=== PATIENT | female | born 1970 | race Caucasian/White ===

== ENCOUNTER 2018-09-12 09:56 | Emergency (ER) | payer MEDICARE, BC ==
[~2018-09-12] VITALS: Ht 165.1 cm; Wt 109.3 kg
--- OUTSIDE RECORDS SUMMARY | 2018-09-12 10:20 | XMS REPORT ---
Author Author NEELAM JAMES [facility] YONATHAN GUILLERMO MAIN Address [address] [place] [address] Care Team Providers Care Cigarette Paper Tester Name Role Phone JACOB, NEELAM Unavailable PROBLEMS Type Condition ICD9-CM Code CQU37-XG Code Onset Dates Condition Status SNOMED Code Problem Lung nodules R91.8 Aug, 0 745004718 Problem Hemorrhoids K64.9 Jun, 0 04588662 Problem Primary osteoarthritis of right knee M17.11 Jan, 0 513848580 Problem Vitamin B12 deficiency E53.8 July, 0 396099402 Problem Mild persistent asthma with acute exacerbation J45.31 Dec, 0 [id number] Problem Fibromyalgia M79.7 Active 729910059 Problem Hypothyroidism (acquired) E03.9 Active 272706860 Problem Anal fissure K60.2 Jun, 0 99079014 Problem Gastroesophageal reflux disease K21.9 Apr, 0 466131912 Problem Family history of colon cancer Z80.0 Nov, 0 501687599 Problem Esophageal stricture K22.2 Jun, 0 54776640 Problem Therapeutic opioid induced constipation K59.03 Mar, 0 [id number] Problem Temporomandibular joint pain 524.62 Feb, 0 37601433 Problem Mild persistent asthma with acute exacerbation 493.92 Dec, 0 915162434 Problem Temporomandibular joint pain M26.629 Feb, 0 34209238 Problem Primary osteoarthritis of right knee 715.16 Jan, 0 865110582 Problem Severe obesity (BMI 35.0-39.9) with comorbidity 278.01 Aug, 0 374391574 Problem Migraine G43.909 Feb, 0 56642170 Problem Hypoxia R09.02 Sep, 0 141981167 Problem Community acquired pneumonia of right middle lobe of lung 481 Aug, 0 891295373 Problem Dyspnea on exertion R06.09 Oct, 0 27844257 Problem Therapeutic opioid induced constipation 564.09 Mar, 0 853048759357699 Problem Gastroesophageal reflux disease 530.81 Apr, 0 601745712 Problem Lung nodules 793.19 Aug, 0 684750659 Problem Esophageal stricture 530.3 Jun, 0 99807702 Problem Vitamin B12 deficiency 266.2 July, 0 006710537 Problem Hemorrhoids 455.6 Jun, 0 36204751 Problem Hypoxia 799.02 Sep, 0 609597219 Problem Dyspnea on exertion 786.09 Oct, 0 06578657 Problem Rotator cuff tendinitis M75.80 Oct, 0 064015899 Problem Rotator cuff tendinitis 726.10 Oct, 0 853307510 Problem Community acquired pneumonia of right middle lobe of lung J18.1 Aug, 0 654386876 Problem Severe obesity (BMI 35.0-39.9) with comorbidity E66.01 Aug, 0 491964112 Problem Insomnia 780.52 Jun, 0 357862708 Problem Anxiety 300.00 Jun, 0 26410445 Problem Anal fissure 565.0 Jun, 0 93470578 Problem Migraine 346.90 Feb, 0 98896404 Problem Hypothyroidism E03.9 Apr, 0 02331578 Problem Insomnia G47.00 Jun, 0 572374904 Problem Bilateral carpal tunnel syndrome G56.03 Active 61674270 Problem Anxiety F41.9 Active 72267320 Problem Memory impairment R41.3 Active 740724503 Problem Moderate episode of recurrent major depressive disorder F33.1 Active 322884579 Problem Primary insomnia F51.01 Active 9676588 Problem Hypothyroidism, unspecified E03.9 Active 17860844 Problem Fibromyalgia 729.1 Apr, 0 371778979 Problem Breast cancer C50.919 Active 528498760 Problem Family history of colon cancer V16.0 Nov, 0 492794098 Problem Hypothyroidism 244.9 Apr, 0 69396548 Problem Bipolar II disorder F31.81 Active 70531390 Problem Asthma J45.909 Active 390228148 Problem Morbid obesity E66.01 Active 979074113 Problem Insomnia, unspecified G47.00 Active 988557382 ALLERGIES Substance Reaction Event Type Date Status Topamax Unknown Drug Allergy May, Active Klonopin Unknown Drug Allergy May, Active Ibuprofen Unknown Drug Allergy May, Active Tylenol with Codeine #3 Unknown Drug Allergy May, Active ENCOUNTERS Encounter Location Date Diagnosis [facility] [address] [place] [address] Oct, [facility] [address] [place] [address] Aug, [facility] [address] [facility] [id number] [place] [address] July, [facility] [address] [place] [address] July, Dental examination Z01.20 ; Caries K02.9 ; Gingivitis K05.10 and Oral health maintenance status requiring routine preventive dental care K08.[address] [address] July, Breast tenderness N64.[address] [address] July, Morbid obesity E66.01 and Fibromyalgia M79.7 [facility] [address] [place] [address] July, [address] [address] July, Bipolar II disorder F31.81 ; Anxiety F41.9 and BMI 40.0-44.9, adult Z68.[address] [address] July, [address] [address] July, Breast tenderness N64.[address] [address] July, Breast cancer C50.[address] [address] Jun, [address] [address] Jun, Hypothyroidism (acquired) E03.9 and Prediabetes R73.03 [facility] [place] [address] [place] [address] Jun, [facility] [place] [address] [place] [address] Jun, Fibromyalgia M79.[address] [address] Jun, [address] [address] Jun, Hypothyroidism, unspecified E03.9 ; Insomnia, unspecified G47.00 ; Moderate episode of recurrent major depressive disorder F33.1 and Fibromyalgia M79.[address] [address] Jun, [facility] [address] [place] [address] Jun, Morbid obesity E66.01 [facility] [address] [place] [address] Jun, Morbid obesity E66.[address] [address] Jun, Fibromyalgia M79.7 [facility] [address] [facility] [id number] [place] [address] Jun, [facility] [place] [address] [place] [address] Jun, [address] [address] May, [facility] [address] [place] [address] May, Asthma exacerbation J45.901 and Sinus pain J34.[address] [address] May, [address] [address] May, [facility] [place] [address] [place] [address] May, [address] [place] [address] 08 May, 2018 Hypothyroidism (acquired) E03.[address] [address] 07 May, 2018 Fibromyalgia M79.7 ; Morbid obesity E66.01 ; Anxiety F41.9 ; Moderate episode of recurrent major depressive disorder F33.1 ; Memory impairment R41.3 ; Hypothyroidism (acquired) E03.9 ; Elevated glucose R73.09 ; History of migraine Z86.69 ; Prediabetes R73.03 and Primary insomnia F51.[address] [address] 05 May, [address] [address] 26 Apr, [address] [address] 16 Apr, 2018 Moderate episode of recurrent major depressive disorder F33.1 [facility] [address] [place] [address] Apr, Bipolar II disorder F31.81 [facility] [address] [place] [address] Apr, Bipolar II disorder F31.81 [facility] [id number] [place] [address] Apr, Anxiety F41.9 ; Bipolar II disorder F31.81 and BMI 40.0-44.9, adult Z68.[address] [address] 04 Apr, 2018 Fibromyalgia M79.7 [facility] [place] [address] [place] [address] Mar, Moderate episode of recurrent major depressive disorder F33.1 [facility] [address] [place] [address] Feb, [facility] [address] [place] [address] Feb, [facility] [address] [place] [id number] [place] [address] Feb, [facility] [address] [place] [address] [place] [address] Jan, [facility] [address] [place] [address] [place] [address] Jan, [facility] [address] [place] [address] [place] [address] Jan, Moderate episode of recurrent major depressive disorder F33.1 ; Memory impairment R41.3 ; Fibromyalgia M79.7 ; Bilateral carpal tunnel syndrome G56.03 ; Hypothyroidism (acquired) E03.9 ; Prediabetes R73.03 ; Screening for breast cancer Z12.31 and History of seizure Z87.898 [facility] [address] [place] [address] [place] [address] Dec, Mood disorder F39 ; Moderate episode of recurrent major depressive disorder F33.1 ; Anxiety F41.9 and BMI 40.0-44.9, adult Z68.41 [facility] [place] [address] [place] [address] Sep, Mood disorder F39 ; Moderate episode of recurrent major depressive disorder F33.1 ; Anxiety F41.9 and BMI 40.0-44.9, adult Z68.41 [facility] [address] [facility] [id number] [place] [address] Aug, [facility] [address] [place] [address] July, Mood disorder F39 ; Moderate episode of recurrent major depressive disorder F33.1 ; Anxiety F41.9 and BMI 40.0-44.9, adult Z68.41 [facility] [place] [address] [place] [address] May, Mood disorder F39 ; Moderate episode of recurrent major depressive disorder F33.1 ; Anxiety F41.9 and BMI 40.0-44.9, adult Z68.41 [facility] [place] [address] [place] [address] May, Mood disorder F39 [facility] [address] [id number] [place] [address] May, Mood disorder F39 ; Moderate episode of recurrent major depressive disorder F33.1 and Anxiety F41.9 [facility] [address] [facility] [id number] [place] [address] May, [facility] [address] [facility] [id number] [place] [address] Apr, Mood disorder F39 [facility] [place] [address] [place] [address] Apr, [facility] [place] [address] [place] [address] Apr, Mood disorder F39 ; Moderate episode of recurrent major depressive disorder F33.1 and Anxiety F41.9 IMMUNIZATIONS Vaccine Route Administration Date Status B12, VITAMIN (UP TO 1000 MCG) IM Intramuscular May 23, 2018 Administered SOCIAL HISTORY Never Assessed REASON FOR VISIT CHM, Medication refills - Lasix, Levothyrixne, Promethezine, Discuss weight loss - inquiring Sidra Edwards,RN PLAN OF CARE Activity Details Follow Up 3 Months,prn Reason:Anxiety VITAL SIGNS Height 64 in 2018-05-23 Weight 252 lbs 2018-05-23 BMI 43.25 kg/m2 2018-05-23 Blood pressure systolic 108 mmHg 2018-05-23 Blood pressure diastolic 64 mmHg 2018-05-23 MEDICATIONS Medication Instructions Dosage Frequency Start Date End Date Duration Status Lamotrigine 200 mg Orally QHS 1 tablet 30 days Unknown Estradiol 2 MG Orally Daily for Three Weeks, 1 Week off 1 tablet 90 days Active Calcium + D3 600-200 MG-UNIT Orally Once a day 2 tablet with supper 24h 30 day(s) Active Dicyclomine HCl 20 MG Orally Four times a day 1 tablet 6h 90 days Active Naloxegol Oxalate 25 MG Orally Once a day 1 tablet in the morning 24h 90 days Unknown Zolpidem Tartrate 10 MG Orally Once a day 1 tablet at bedtime as needed 24h Apr, 28 days Active Promethazine HCl 25 MG Orally every 12 hrs 1/2 tablet as needed 12h Mar, Active Clonidine HCl 0.1 MG Orally Once a day 1 tablet 24h Apr, 30 day(s) Active Rizatriptan Benzoate 10 MG Orally once daily as needed 1 tablet 30 days Active Cymbalta 30 MG Orally 3 times a day 1 capsule 8h 30 day(s) Active Fluticasone Propionate (Inhal) 50 MCG/BLIST Inhalation Twice a day 2 puffs 12h Active Contrave 8-90 MG Orally Twice a day 2 tablets 12h May, 30 day(s) Active Levothyroxine Sodium 75 MCG Orally Once a day 1 tablet on an empty stomach in the morning 24h 90 days Active Potassium Chloride ER 20 meq Orally Once a day 1 tablet with food 24h Mar, 30 day(s) Active Albuterol Sulfate HFA 108 (90 Base) MCG/ACT Inhalation every 6 hrs 2 puffs as needed 6h Active Furosemide 40 MG Orally 2 times a day as directed 12h 90 days Active Latuda 60 mg Orally Once a day 1 tablet 24h 30 days Active Multivitamin Adult - Orally at bedtime 2 tablets Active Ativan 0.5 MG Orally at bedtime 1 tablet as needed Unknown Gabapentin 300 MG Orally Once a day 2 capsules in the morning, 1 in the afternoon, and 2 at hs 24h 30 day(s) Active RESULTS No Results PROCEDURES Procedure Date Ordered Result Body Site [facility] VISIT ESTABLISHED PATIENT May 23, 2018 VENIPUNCT, ROUTINE* May 23, 2018 THER/PROPH/DIAG INJ, SC/IM May 23, 2018 B12, VITAMIN (UP TO 1000 MCG) May 23, 2018 Hemoglobin Test Send Out 0 dollar May 23, 2018 LAB NOT BILLED BY [facility] May 23, 2018 INSTRUCTIONS MEDICATIONS ADMINISTERED No Known Medications MEDICAL (GENERAL) HISTORY Type Description Date Medical History low blood sugar Medical History sleep issues Medical History colon polyp Medical History acute renal failure Medical History anxiety Medical History migraines Medical History underactive thyroid Medical History seizure disorder Medical History fibromyalgia Medical History acid reflux Medical History asthma Medical History obesity Medical History degenerative joinnt disorder leg Medical History lymphodema Surgical History gastric bypass Surgical History endoscopy, colon Surgical History colonoscpy X3 Surgical History Surgical History tubal ligation Surgical History cholesyectomy Surgical History Lap, rmv, Adn Surgical History Lap, vag, hys Surgical History shoulder surgery Surgical History revise ulnar Surgical History Revise Media Surgical History Upper Gi End Surgical History esophagus, has collapsed twice in the last year Hospitalization History surgery Hospitalization History renal failure Hospitalization History fibromyalgia
--- OUTSIDE RECORDS SUMMARY | 2018-09-12 10:21 | XMS REPORT ---
Author Author SALVADORARLINEJAMAR Organization [facility] Address [address] [place] [address] Care Team Providers Care Toaster Operator Name Role Phone WAQAS FRANCO Unavailable PROBLEMS Type Condition ICD9-CM Code [id number] Code Onset Dates Condition Status SNOMED Code Problem Anxiety F41.9 Active 44135296 Problem Mood disorder F39 Active 46722285 Problem Moderate episode of recurrent major depressive disorder F33.1 Active 620818530 ALLERGIES Substance Reaction Event Type Date Status Tylenol with Codeine #3 Unknown Drug Allergy July, Active Topamax Unknown Drug Allergy July, Active Ibuprofen Unknown Drug Allergy July, Active ENCOUNTERS Encounter Location Date Diagnosis [facility] [address] [place] [address] [place] [address] Dec, [facility] [address] [place] [address] Sep, Mood disorder F39 ; Moderate episode of recurrent major depressive disorder F33.1 ; Anxiety F41.9 and BMI 40.0-44.9, adult Z68.41 [facility] [address] [place] [address] July, Mood disorder F39 ; Moderate episode of recurrent major depressive disorder F33.1 ; Anxiety F41.9 and BMI 40.0-44.9, adult Z68.41 [facility] [address] [place] [address] May, Mood disorder F39 ; Moderate episode of recurrent major depressive disorder F33.1 ; Anxiety F41.9 and BMI 40.0-44.9, adult Z68.41 [facility] [address] [place] [address] May, Mood disorder F39 [facility] [address] [id number] [address] May, Mood disorder F39 ; Moderate episode of recurrent major depressive disorder F33.1 and Anxiety F41.9 [facility] [address] [facility] [id number] [place] [address] May, [facility] [address] [facility] [id number] [place] [address] Apr, Mood disorder F39 [facility] [address] [place] [address] Apr, [facility] [address] [place] [address] Apr, Mood disorder F39 ; Moderate episode of recurrent major depressive disorder F33.1 and Anxiety F41.9 IMMUNIZATIONS No Known Immunizations SOCIAL HISTORY Never Assessed REASON FOR VISIT f/u, Mood is better, still having a lot of outbursts " felt like she was all over the place. She states she was told she was thrashing around in her sleep, slthough she does not remember it. Reported by spouse. Also wakes hot and sweaty, in a cold house. Heydi Nam RN PLAN OF CARE Activity Details Follow Up 3 Months Reason: VITAL SIGNS Height 65.4 in 2017-07-20 Weight 237.4 lbs 2017-07-20 Temperature 97.6 degrees Fahrenheit 2017-07-20 Heart Rate 78 bpm 2017-07-20 Respiratory Rate 16 2017-07-20 BMI 39.02 kg/m2 2017-07-20 Blood pressure systolic 135 mmHg 2017-07-20 Blood pressure diastolic 93 mmHg 2017-07-20 MEDICATIONS Medication Instructions Dosage Frequency Start Date End Date Duration Status HydrOXYzine Pamoate 50 mg Orally every 6 hrs 1 capsule as needed 6h 30 day(s) Active Lamotrigine 100 MG Orally Twice a day 1/2 tablet 12h 30 days Active Latuda 60 mg Orally Once a day 1 tablet 24h 30 day(s) Active RESULTS No Results PROCEDURES Procedure Date Ordered Result Body Site [facility] VISIT ESTABLISHED PATIENT July 20, 2017 INSTRUCTIONS MEDICATIONS ADMINISTERED No Known Medications MEDICAL [...]
--- OUTSIDE RECORDS SUMMARY | 2018-09-12 10:21 | XMS REPORT ---
Author Author NEELAM JAMES [facility] YONATHAN GUILLERMO MAIN Address [address] [place] [address] Care Team Providers Care Costing Manager Name Role Phone JACOB, NEELAM Unavailable PROBLEMS Type Condition ICD9-CM Code HRR54-XI Code Onset Dates Condition Status SNOMED Code Problem Lung nodules R91.8 Aug, 0 506504661 Problem Hemorrhoids K64.9 Jun, 0 60876082 Problem Primary osteoarthritis of right knee M17.11 Jan, 0 475748503 Problem Vitamin B12 deficiency E53.8 July, 0 813731272 Problem Mild persistent asthma with acute exacerbation J45.31 Dec, 0 [id number] Problem Fibromyalgia M79.7 Active 290440467 Problem Hypothyroidism (acquired) E03.9 Active 765768068 Problem Anal fissure K60.2 Jun, 0 78329899 Problem Gastroesophageal reflux disease K21.9 Apr, 0 522610856 Problem Family history of colon cancer Z80.0 Nov, 0 892199599 Problem Esophageal stricture K22.2 Jun, 0 91113144 Problem Therapeutic opioid induced constipation K59.03 Mar, 0 160151304624654 Problem Temporomandibular joint pain 524.62 Feb, 0 82724425 Problem Mild persistent asthma with acute exacerbation 493.92 Dec, 0 589502268 Problem Temporomandibular joint pain M26.629 Feb, 0 21772148 Problem Primary osteoarthritis of right knee 715.16 Jan, 0 547827443 Problem Severe obesity (BMI 35.0-39.9) with comorbidity 278.01 Aug, 0 084957347 Problem Migraine G43.909 Feb, 0 53208610 Problem Hypoxia R09.02 Sep, 0 035899128 Problem Community acquired pneumonia of right middle lobe of lung 481 Aug, 0 428258406 Problem Dyspnea on exertion R06.09 Oct, 0 41375597 Problem Therapeutic opioid induced constipation 564.09 Mar, 0 400882714854235 Problem Gastroesophageal reflux disease 530.81 Apr, 0 721207926 Problem Lung nodules 793.19 Aug, 0 943878534 Problem Esophageal stricture 530.3 Jun, 0 64592876 Problem Vitamin B12 deficiency 266.2 July, 0 530944685 Problem Hemorrhoids 455.6 Jun, 0 21585944 Problem Hypoxia 799.02 Sep, 0 145532977 Problem Dyspnea on exertion 786.09 Oct, 0 64837073 Problem Rotator cuff tendinitis M75.80 Oct, 0 086284755 Problem Rotator cuff tendinitis 726.10 Oct, 0 437406066 Problem Community acquired pneumonia of right middle lobe of lung J18.1 Aug, 0 381790020 Problem Severe obesity (BMI 35.0-39.9) with comorbidity E66.01 Aug, 0 068583542 Problem Insomnia 780.52 Jun, 0 439756162 Problem Anxiety 300.00 Jun, 0 08150535 Problem Anal fissure 565.0 Jun, 0 77029778 Problem Migraine 346.90 Feb, 0 54711975 Problem Hypothyroidism E03.9 Apr, 0 61899215 Problem Insomnia G47.00 Jun, 0 164325480 Problem Bilateral carpal tunnel syndrome G56.03 Active 20831910 Problem Anxiety F41.9 Active 13479011 Problem Memory impairment R41.3 Active 314111440 Problem Moderate episode of recurrent major depressive disorder F33.1 Active 957175715 Problem Primary insomnia F51.01 Active 2115305 Problem Hypothyroidism, unspecified E03.9 Active 84684749 Problem Fibromyalgia 729.1 Apr, 0 356356594 Problem Breast cancer C50.919 Active 466182996 Problem Family history of colon cancer V16.0 Nov, 0 785757075 Problem Hypothyroidism 244.9 Apr, 0 92249801 Problem Bipolar II disorder F31.81 Active 20460520 Problem Asthma J45.909 Active 403019712 Problem Morbid obesity E66.01 Active 423220722 Problem Insomnia, unspecified G47.00 Active 646492837 ALLERGIES No Information ENCOUNTERS Encounter Location Date Diagnosis [facility] [address] [place] [address] Oct, [facility] [address] [place] [address] Aug, [facility] [address] [facility] [id number] [place] [address] July, [facility] [address] [place] [address] July, Dental examination Z01.20 ; Caries K02.9 ; Gingivitis K05.10 and Oral health maintenance status requiring routine preventive dental care K08.[address] [address] July, Breast tenderness N64.[address] [address] July, Morbid obesity E66.01 and Fibromyalgia M79.7 [facility] [address] [place] [address] July, [address] [place] [address] July, Bipolar II disorder F31.81 ; Anxiety F41.9 and BMI 40.0-44.9, adult Z68.[address] [address] July, [address] [address] July, Breast tenderness N64.[address] [address] July, Breast cancer C50.[address] [address] Jun, [address] [address] Jun, Hypothyroidism (acquired) E03.9 and Prediabetes R73.[address] [facility] [address] [place] [address] Jun, [facility] [place] [address] [place] [address] Jun, Fibromyalgia M79.[address] [address] Jun, [address] [address] Jun, Hypothyroidism, unspecified E03.9 ; Insomnia, unspecified G47.00 ; Moderate episode of recurrent major depressive disorder F33.1 and Fibromyalgia M79.[address] [address] Jun, [facility] [address] [place] [address] Jun, Morbid obesity E66.[address] [facility] [address] [place] [address] Jun, Morbid obesity E66.[address] [address] Jun, Fibromyalgia M79.7 [facility] [address] [facility] [id number], [place] [address] Jun, [facility] [address] [place] [address] Jun, [address] [address] May, [facility] [address] [place] [address] May, Asthma exacerbation J45.901 and Sinus pain J34.[address] [address] May, [address] [address] May, [facility] [address] [place] [address] May, [address] [address] May, Hypothyroidism (acquired) E03.[address] [address] May, Fibromyalgia M79.7 ; Morbid obesity E66.01 ; Anxiety F41.9 ; Moderate episode of recurrent major depressive disorder F33.1 ; Memory impairment R41.3 ; Hypothyroidism (acquired) E03.9 ; Elevated glucose R73.09 ; History of migraine Z86.69 ; Prediabetes R73.03 and Primary insomnia F51.[address] [address] May, [address] [address] Apr, [address] [address] 16 Apr, 2018 Moderate episode of recurrent major depressive disorder F33.1 [facility] [address] [place] [address] 14 Apr, 2018 Bipolar II disorder F31.81 [facility] [id number] [place] [address] Apr, Bipolar II disorder F31.81 [facility] [address] [place] [address] Apr, Anxiety F41.9 ; Bipolar II disorder F31.81 and BMI 40.0-44.9, adult Z68.[address] [address] 04 Apr, 2018 Fibromyalgia M79.[address] [place] [address] Mar, Moderate episode of recurrent major depressive disorder F33.1 [facility] [address] [place] [address] Feb, [facility] [id number] [place] [address] Feb, [facility] [address] [place] [address] Feb, [facility] [address] [place] [address] Jan, [facility] [address] [place] [address] Jan, [facility] [address] [place] [address] Jan, Moderate episode of recurrent major depressive disorder F33.1 ; Memory impairment R41.3 ; Fibromyalgia M79.7 ; Bilateral carpal tunnel syndrome G56.03 ; Hypothyroidism (acquired) E03.9 ; Prediabetes R73.03 ; Screening for breast cancer Z12.31 and History of seizure Z87.[address] [facility] [address] [place] [address] [place] [address] Dec, Mood disorder F39 ; Moderate episode of recurrent major depressive disorder F33.1 ; Anxiety F41.9 and BMI 40.0-44.9, adult Z68.41 [facility] [address] [place] [address] Sep, Mood disorder F39 ; Moderate episode of recurrent major depressive disorder F33.1 ; Anxiety F41.9 and BMI 40.0-44.9, adult Z68.41 [facility] [address] [facility] [id number], [place] [address] Aug, [facility] [address] [place] [address] July, Mood disorder F39 ; Moderate episode of recurrent major depressive disorder F33.1 ; Anxiety F41.9 and BMI 40.0-44.9, adult Z68.41 [facility] [address] [place] [address] May, Mood disorder F39 ; Moderate episode of recurrent major depressive disorder F33.1 ; Anxiety F41.9 and BMI 40.0-44.9, adult Z68.41 [facility] [address] [place] [address] May, Mood disorder F39 [facility] [address] [id number], [place] [address] May, Mood disorder F39 ; Moderate episode of recurrent major depressive disorder F33.1 and Anxiety F41.9 [facility] [address] [facility] [id number] [place] [address] May, [facility] [address] [facility] [id number], [place] [address] Apr, Mood disorder F39 [facility] [place] [address] [place] [address] Apr, [facility] [place] [address] [place] [address] Apr, Mood disorder F39 ; Moderate episode of recurrent major depressive disorder F33.1 and Anxiety F41.9 IMMUNIZATIONS No Known Immunizations SOCIAL HISTORY Never Assessed REASON FOR VISIT Orders PLAN OF CARE VITAL SIGNS MEDICATIONS Medication Instructions Dosage Frequency Start Date End Date Duration Status Levothyroxine Sodium 100 MCG Orally Once a day 1 tablet on an empty stomach in the morning 24h May, 30 day(s) Active RESULTS No Results PROCEDURES No Known procedures INSTRUCTIONS MEDICATIONS ADMINISTERED No Known Medications MEDICAL [...]
--- OUTSIDE RECORDS SUMMARY | 2018-09-12 10:21 | XMS REPORT ---
Author Author SALVADORARLINEJAMAR Organization [facility] [address] Address [address] [place] [address] Care Team Providers Care Dip Lube Operator Name Role Phone WAQAS FRANCO Unavailable PROBLEMS Type Condition ICD9-CM Code TFA06-BV Code Onset Dates Condition Status SNOMED Code Problem Anxiety F41.9 Active 77088896 Problem Mood disorder F39 Active 98690915 Problem Moderate episode of recurrent major depressive disorder F33.1 Active 278034932 ALLERGIES No Information ENCOUNTERS Encounter Location Date Diagnosis [facility] [address] [place] [address] [place] [address] Dec, [facility] [address] [place] [address] Sep, Mood disorder F39 ; Moderate episode of recurrent major depressive disorder F33.1 ; Anxiety F41.9 and BMI 40.0-44.9, adult Z68.41 [facility] [address] [place] [address] July, Mood disorder F39 ; Moderate episode of recurrent major depressive disorder F33.1 ; Anxiety F41.9 and BMI 40.0-44.9, adult Z68.41 [facility] [address] [place] [address] May, Mood disorder F39 ; Moderate episode of recurrent major depressive disorder F33.1 ; Anxiety F41.9 and BMI 40.0-44.9, adult Z68.41 [facility] [address] [place] [address] May, Mood disorder F39 [facility] [address] [id number] [place] [address] 06 May, 2017 Mood disorder F39 ; Moderate episode of recurrent major depressive disorder F33.1 and Anxiety F41.9 [facility] [address] [facility] [id number] [place] [address] May, [facility] [address] [facility] [id number], [place] [address] Apr, Mood disorder F39 [facility] [place] [address] [place] [address] Apr, [facility] [place] [address] [place] [address] Apr, Mood disorder F39 ; Moderate episode of recurrent major depressive disorder F33.1 and Anxiety F41.9 IMMUNIZATIONS No Known Immunizations SOCIAL HISTORY Never Assessed REASON FOR VISIT f/u, Mood, depression, anxiety med management ESC RN PLAN OF CARE Activity Details Follow Up 3 Months Reason: VITAL SIGNS Height 65.4 in 2017-09-27 Weight 239.0 lbs 2017-09-27 Temperature 97.7 degrees Fahrenheit 2017-09-27 Heart Rate 79 bpm 2017-09-27 Respiratory Rate 16 2017-09-27 BMI 39.28 kg/m2 2017-09-27 Blood pressure systolic 104 mmHg 2017-09-27 Blood pressure diastolic 70 mmHg 2017-09-27 MEDICATIONS Medication Instructions Dosage Frequency Start Date End Date Duration Status Lamotrigine 150 MG Orally QHS 1 tablet 30 days Active Lamotrigine 25 MG Orally Twice a day 1 tablet 12h 15 Not-Taking HydrOXYzine Pamoate 50 mg Orally every 6 hrs 1 capsule as needed 6h 30 day(s) Active Latuda 60 mg Orally Once a day 1 tablet 24h 30 day(s) Active RESULTS No Results PROCEDURES Procedure Date Ordered Result Body Site [facility] VISIT ESTABLISHED PATIENT September 27, 2017 INSTRUCTIONS MEDICATIONS ADMINISTERED No Known Medications [...]
--- OUTSIDE RECORDS SUMMARY | 2018-09-12 10:21 | XMS REPORT ---
Author Author SALVADOR WAQAS Organization [facility] [address] Address [address] [place] [address] Care Team Providers Care Repulping Supervisor Name Role Phone WAQAS FRANCO Unavailable PROBLEMS Type Condition ICD9-CM Code XRK91-PH Code Onset Dates Condition Status SNOMED Code Problem Anxiety F41.9 Active 63440705 Problem Mood disorder F39 Active 49158976 Problem Moderate episode of recurrent major depressive disorder F33.1 Active 297783265 ALLERGIES Substance Reaction Event Type Date Status Tylenol with Codeine #3 Unknown Drug Allergy Dec, Active Topamax Unknown Drug Allergy Dec, Active Ibuprofen Unknown Drug Allergy Dec, Active ENCOUNTERS Encounter Location Date Diagnosis [facility] [address] [address] [place] [address] Mar, [facility] [address] [place] [address] Jan, [facility] [address] [place] [address] Dec, Mood disorder F39 ; Moderate episode of recurrent major depressive disorder F33.1 ; Anxiety F41.9 and BMI 40.0-44.9, adult Z68.41 [facility] [address] [place] [address] Sep, Mood disorder F39 ; Moderate episode of recurrent major depressive disorder F33.1 ; Anxiety F41.9 and BMI 40.0-44.9, adult Z68.41 [facility] [address] [place] [address] July, Mood disorder F39 ; Moderate episode of recurrent major depressive disorder F33.1 ; Anxiety F41.9 and BMI 40.0-44.9, adult Z68.41 [facility] [address] [place] [address] May, Mood disorder F39 ; Moderate episode of recurrent major depressive disorder F33.1 ; Anxiety F41.9 and BMI 40.0-44.9, adult Z68.41 [facility] [place] [address] [place] [address] May, Mood disorder F39 [facility] [address] [id number] [address] May, Mood disorder F39 ; Moderate episode of recurrent major depressive disorder F33.1 and Anxiety F41.9 [facility] [address] [facility] [id number][place] [address] May, [facility] [address] [facility] [id number] [address] Apr, Mood disorder F39 [facility] [place] [address] [place] [address] Apr, [facility] [place] [address] [place] [address] Apr, Mood disorder F39 ; Moderate episode of recurrent major depressive disorder F33.1 and Anxiety F41.9 IMMUNIZATIONS No Known Immunizations SOCIAL HISTORY Never Assessed REASON FOR VISIT f/u Last couple of weeks have been really rough. Severe crying Jag , self iso lation. Heydi Nam RN PLAN OF CARE Activity Details Follow Up 3 Months Reason: VITAL SIGNS Height 65.4 in 2018-01-10 Weight 245.6 lbs 2018-01-10 Temperature 97.7 degrees Fahrenheit 2018-01-10 Heart Rate 87 bpm 2018-01-10 Respiratory Rate 16 2018-01-10 BMI 40.37 kg/m2 2018-01-10 Blood pressure systolic 117 mmHg 2018-01-10 Blood pressure diastolic 83 mmHg 2018-01-10 MEDICATIONS Medication Instructions Dosage Frequency Start Date End Date Duration Status HydrOXYzine Pamoate 50 mg Orally every 6 hrs 1 capsule as needed 6h 30 day(s) Active Lamotrigine 200 MG Orally QHS 1 tablet 30 days Active Ativan 0.5 MG Orally at bedtime 1 tablet as needed Active Latuda 60 mg Orally Once a day 1 tablet 24h 30 day(s) Active RESULTS No Results PROCEDURES Procedure Date Ordered Result Body Site [facility] VISIT ESTABLISHED PATIENT Jan 10, 2018 INSTRUCTIONS MEDICATIONS ADMINISTERED No Known Medications [...]
--- OUTSIDE RECORDS SUMMARY | 2018-09-12 10:21 | XMS REPORT ---
Author Author TULIO ARCHULETA Organization [facility] [address] [place] Address [address] [place] [address] Care Team Providers Care Transmitter Tester Name Role Phone FIDENCIOTULIO SCALES Unavailable PROBLEMS Type Condition ICD9-CM Code [id number] Code Onset Dates Condition Status SNOMED Code Problem Anxiety F41.9 Active 34823411 Problem Fibromyalgia M79.7 Active 287935933 Problem Hypothyroidism (acquired) E03.9 Active 855098590 Problem Moderate episode of recurrent major depressive disorder F33.1 Active 183185617 Problem Mood disorder F39 Active 67660794 Problem Memory impairment R41.3 Active 620319012 Problem Bilateral carpal tunnel syndrome G56.03 Active 88632936 ALLERGIES No Information ENCOUNTERS Encounter Location Date Diagnosis [facility] [address] [place] [address] [place] [address] Mar, [facility] [address] [address] Jan, [facility] [address] [place] [address] Jan, [facility] [address] [place] [address] Jan, Moderate episode of recurrent major depressive disorder F33.1 ; Memory impairment R41.3 ; Fibromyalgia M79.7 ; Bilateral carpal tunnel syndrome G56.03 ; Hypothyroidism (acquired) E03.9 ; Prediabetes R73.03 ; Screening for breast cancer Z12.31 and History of seizure Z87.898 [facility] [address] [place] [address] [place] [address] Dec, Mood disorder F39 ; Moderate episode of recurrent major depressive disorder F33.1 ; Anxiety F41.9 and BMI 40.0-44.9, adult Z68.41 [facility] [place] [address] [place] [address] Sep, Mood disorder F39 ; Moderate episode of recurrent major depressive disorder F33.1 ; Anxiety F41.9 and BMI 40.0-44.9, adult Z68.41 [facility] [address] [place] [address] July, Mood disorder F39 ; Moderate episode of recurrent major depressive disorder F33.1 ; Anxiety F41.9 and BMI 40.0-44.9, adult Z68.41 [facility] [address] [place] [address] May, Mood disorder F39 ; Moderate episode of recurrent major depressive disorder F33.1 ; Anxiety F41.9 and BMI 40.0-44.9, adult Z68.41 [facility] [address] [place] [address] May, Mood disorder F39 [facility] [id number] [place] [address] May, Mood disorder F39 ; Moderate episode of recurrent major depressive disorder F33.1 and Anxiety F41.9 [facility] [place] [address], [place] [address] May, [facility] [place] [address] [place] [address] Apr, Mood disorder F39 [facility] [address] [place] [address] Apr, [facility] [address] [place] [address] Apr, Mood disorder F39 ; Moderate episode of recurrent major depressive disorder F33.1 and Anxiety F41.9 IMMUNIZATIONS No Known Immunizations SOCIAL HISTORY Never Assessed REASON FOR VISIT Medication refill request PLAN OF CARE VITAL SIGNS MEDICATIONS Unknown Medications RESULTS No Results PROCEDURES No Known procedures [...]
--- OUTSIDE RECORDS SUMMARY | 2018-09-12 10:21 | XMS REPORT ---
Author Author TULIO ARCHULETA Organization [facility] [address] Address [address] [place] [address] Care Team Providers Care Manager Combination Name Role Phone FIDENCIOTULIO SCALES Unavailable PROBLEMS Type Condition ICD9-CM Code LII96-BD Code Onset Dates Condition Status SNOMED Code Problem Anxiety F41.9 Active 37553941 Problem Fibromyalgia M79.7 Active 486065980 Problem Hypothyroidism (acquired) E03.9 Active 100479074 Problem Moderate episode of recurrent major depressive disorder F33.1 Active 316841309 Problem Mood disorder F39 Active 23230961 Problem Memory impairment R41.3 Active 671715457 Problem Bilateral carpal tunnel syndrome G56.03 Active 61030426 ALLERGIES No Information ENCOUNTERS Encounter Location Date Diagnosis [facility] [address] [place] [address] [place] [address] Mar, [facility] [address] [address] Jan, [facility] [address] [place] [address] Jan, [facility] [address] [place] [address] Jan, Moderate episode of recurrent major depressive disorder F33.1 ; Memory impairment R41.3 ; Fibromyalgia M79.7 ; Bilateral carpal tunnel syndrome G56.03 ; Hypothyroidism (acquired) E03.9 ; Prediabetes R73.03 ; Screening for breast cancer Z12.31 and History of seizure Z87.898 [facility] [address] [address] [place] [address] Dec, Mood disorder F39 ; Moderate episode of recurrent major depressive disorder F33.1 ; Anxiety F41.9 and BMI 40.0-44.9, adult Z68.41 [facility] [place] [address] [place] [address] Sep, Mood disorder F39 ; Moderate episode of recurrent major depressive disorder F33.1 ; Anxiety F41.9 and BMI 40.0-44.9, adult Z68.41 [facility] [address] [place] [address] July, Mood disorder F39 ; Moderate episode of recurrent major depressive disorder F33.1 ; Anxiety F41.9 and BMI 40.0-44.9, adult Z68.41 [facility] [address] [place] [address] May, Mood disorder F39 ; Moderate episode of recurrent major depressive disorder F33.1 ; Anxiety F41.9 and BMI 40.0-44.9, adult Z68.41 [facility] [address] [place] [address] May, Mood disorder F39 [facility] [id number] [place] [address] May, Mood disorder F39 ; Moderate episode of recurrent major depressive disorder F33.1 and Anxiety F41.9 [facility] [address] [address] May, [facility] [id number] [place] [address] Apr, Mood disorder F39 [facility] [address] [place] [address] Apr, [facility] [address] [place] [address] Apr, Mood disorder F39 ; Moderate episode of recurrent major depressive disorder F33.1 and Anxiety F41.9 IMMUNIZATIONS No Known Immunizations SOCIAL HISTORY Never Assessed REASON FOR VISIT Medication question PLAN OF CARE VITAL SIGNS MEDICATIONS Unknown [...]
--- OUTSIDE RECORDS SUMMARY | 2018-09-12 10:22 | XMS REPORT ---
Author Author WAQAS FRANCO Organization [facility] [address] Address [address] [place] [address] Care Team Providers Care Pretzel Cooker Name Role Phone ARLINE FRANCOJAMAR Unavailable PROBLEMS Type Condition ICD9-CM Code [id number] Code Onset Dates Condition Status SNOMED Code Problem Anxiety F41.9 Active 25659402 Problem Mood disorder F39 Active 83475228 Problem Moderate episode of recurrent major depressive disorder F33.1 Active 162139544 ALLERGIES No Information ENCOUNTERS Encounter Location Date Diagnosis [facility] [address] [place] [address] [place] [address] Dec, [facility] [place] [address] [place] [address] Sep, Mood disorder F39 ; Moderate episode of recurrent major depressive disorder F33.1 ; Anxiety F41.9 and BMI 40.0-44.9, adult Z68.41 [facility] [place] [address] [place] [address] July, Mood disorder F39 ; Moderate episode of recurrent major depressive disorder F33.1 ; Anxiety F41.9 and BMI 40.0-44.9, adult Z68.41 [facility] [place] [address] [place] [address] May, Mood disorder F39 ; Moderate episode of recurrent major depressive disorder F33.1 ; Anxiety F41.9 and BMI 40.0-44.9, adult Z68.41 [facility] [place] [address] [place] [address] May, Mood disorder F39 [facility] [address] [id number] [place] [address] May, Mood disorder F39 ; Moderate episode of recurrent major depressive disorder F33.1 and Anxiety F41.9 [facility] [id number], [place] [address] May, [facility] [address] [facility] [id number] [place] [address] Apr, Mood disorder F39 [facility] [address] [place] [address] Apr, [facility] [address] [place] [address] Apr, Mood disorder F39 ; Moderate episode of recurrent major depressive disorder F33.1 and Anxiety F41.9 IMMUNIZATIONS No Known Immunizations SOCIAL HISTORY Never Assessed REASON FOR VISIT PLAN OF CARE Activity Details Follow Up 4 Weeks Reason: VITAL SIGNS Height 65.4 in 2017-06-08 Weight 243.4 lbs 2017-06-08 Temperature 97.8 degrees Fahrenheit 2017-06-08 Heart Rate 96 bpm 2017-06-08 Respiratory Rate 18 2017-06-08 BMI 40.01 kg/m2 2017-06-08 Blood pressure systolic 123 mmHg 2017-06-08 Blood pressure diastolic 80 mmHg 2017-06-08 MEDICATIONS Medication Instructions Dosage Frequency Start Date End Date Duration Status Lamotrigine 25 MG Orally Twice a day 1 tablet 12h 15 days Active Latuda 60 mg Orally Once a day 1 tablet 24h 30 day(s) Active HydrOXYzine Pamoate 50 mg Orally every 6 hrs 1 capsule as needed 6h May, 30 day(s) Active RESULTS No Results PROCEDURES Procedure Date Ordered Result Body Site [facility] VISIT ESTABLISHED PATIENT June 08, 2017 INSTRUCTIONS MEDICATIONS ADMINISTERED No Known Medications [...]
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
--- OUTSIDE RECORDS SUMMARY | 2018-09-12 10:22 | XMS REPORT ---
Author Author SALVADORARLINEJAMAR Organization [facility] Address [address] [place] [address] Care Team Providers Care Charter And Tour Bus Driver Name Role Phone WAQAS FRANCO Unavailable PROBLEMS Type Condition ICD9-CM Code NHY23-MP Code Onset Dates Condition Status SNOMED Code Problem Anxiety F41.9 Active 78481463 Problem Mood disorder F39 Active 21787437 Problem Moderate episode of recurrent major depressive disorder F33.1 Active 339746275 ALLERGIES No Information ENCOUNTERS Encounter Location Date Diagnosis [facility] [address] [address] [facility] [address] [id number] [place] [id number] Sep, [facility] [address] [facility] [address] [id number] [place] [id number] July, Mood disorder F39 ; Moderate episode of recurrent major depressive disorder F33.1 ; Anxiety F41.9 and BMI 40.0-44.9, adult Z68.41 [facility] [address] [facility] [id number] [place] [id number] May, Mood disorder F39 ; Moderate episode of recurrent major depressive disorder F33.1 ; Anxiety F41.9 and BMI 40.0-44.9, adult Z68.41 [facility] [address] [facility] [facility] [address] [id number] [place] [phone] May, Mood disorder F39 [facility] [address] [id number], [place] [address] May, Mood disorder F39 ; Moderate episode of recurrent major depressive disorder F33.1 and Anxiety F41.9 [facility] [address] [facility] [id number], [place] [address] May, [facility] [address] [facility] [id number], [place] [address] Apr, Mood disorder F39 [facility] [place] [address] [facility] [facility] C [id number] [place] [id number] Apr, [facility] [place] [address] [facility] [facility] [address] [id number] [place] [phone] Apr, Mood disorder F39 ; Moderate episode [...]
--- OUTSIDE RECORDS SUMMARY | 2018-09-12 10:22 | XMS REPORT ---
Author Author WAQAS FRANCO Organization [facility] [address] Address [address] [place] [address] Care Team Providers Care Obstetric Anaesthetist Name Role Phone ARLINE FRANCOJAMAR Unavailable PROBLEMS Type Condition ICD9-CM Code UYG20-AT Code Onset Dates Condition Status SNOMED Code Problem Anxiety F41.9 Active 19083316 Problem Mood disorder F39 Active 84355593 Problem Moderate episode of recurrent major depressive disorder F33.1 Active 180583143 ALLERGIES No Information ENCOUNTERS Encounter Location Date Diagnosis [facility] [address] [place] [address] [place] [address] Dec, [facility] [place] [address] [place] [address] Sep, Mood disorder F39 ; Moderate episode of recurrent major depressive disorder F33.1 ; Anxiety F41.9 and BMI 40.0-44.9, adult Z68.41 [facility] [place] [address] [place] [address] July, Mood disorder F39 ; Moderate episode of recurrent major depressive disorder F33.1 ; Anxiety F41.9 and BMI 40.0-44.9, adult Z68.41 [facility] [place] [address] [place] [address] May, Mood disorder F39 ; Moderate episode of recurrent major depressive disorder F33.1 ; Anxiety F41.9 and BMI 40.0-44.9, adult Z68.41 [facility] [place] [address] [place] [address] May, Mood disorder F39 [facility] [address] [id number] [place] [address] May, Mood disorder F39 ; Moderate episode of recurrent major depressive disorder F33.1 and Anxiety F41.9 [facility] [address] [id number] [address] May, [facility] [address] [facility] [id number] [place] [address] Apr, Mood disorder F39 [facility] [address] [place] [address] Apr, [facility] [address] [place] [address] Apr, Mood disorder F39 ; Moderate episode of recurrent major depressive disorder F33.1 and Anxiety F41.9 IMMUNIZATIONS No Known Immunizations SOCIAL HISTORY Never Assessed REASON FOR VISIT meds not working PLAN OF CARE VITAL SIGNS MEDICATIONS Unknown [...]
--- OUTSIDE RECORDS SUMMARY | 2018-09-12 10:22 | XMS REPORT ---
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 Role Phone WAQAS FRANCO Unavailable PROBLEMS Type Condition ICD9-CM Code XLE89-GZ Code Onset Dates Condition Status SNOMED Code Problem Anxiety F41.9 Active 68589358 Problem Mood disorder F39 Active 74658599 Problem Moderate episode of recurrent major depressive disorder F33.1 Active 330984369 ALLERGIES No Information ENCOUNTERS Encounter Location Date Diagnosis [facility] [address] [address] [facility] C [id number] [place] [id number] Sep, [facility] [address] [facility] C [id number] [place] [id number] July, Mood disorder F39 ; Moderate episode of recurrent major depressive disorder F33.1 ; Anxiety F41.9 and BMI 40.0-44.9, adult Z68.41 [facility] [address] [facility] [id number] [place] [address] May, Mood disorder F39 ; Moderate episode of recurrent major depressive disorder F33.1 ; Anxiety F41.9 and BMI 40.0-44.9, adult Z68.41 [facility] [address] [facility] C [id number] [place] [phone] May, Mood disorder F39 [facility] [address] [id number], [place] [address] May, Mood disorder F39 ; Moderate episode of recurrent major depressive disorder F33.1 and Anxiety F41.9 [facility] [address] [facility] [id number], [place] [address] May, [facility] [address] [facility] [id number], [place] [address] Apr, Mood disorder F39 [facility] [place] [address] [facility] C [id number] [place] [id number] Apr, [facility] [place] [address] [facility] C [id number] [place] [address] Apr, Mood disorder F39 ; Moderate episode of recurrent major depressive disorder F33.1 and Anxiety F41.9 IMMUNIZATIONS No Known Immunizations SOCIAL HISTORY Never Assessed REASON FOR VISIT medication questions PLAN OF CARE VITAL SIGNS MEDICATIONS Medication Instructions Dosage Frequency Start Date End Date Duration Status Latuda 20 MG Orally Once a day 2 tablets with food 24h Apr, 30 day(s) Active RESULTS No Results PROCEDURES [...]
--- OUTSIDE RECORDS SUMMARY | 2018-09-12 10:22 | XMS REPORT ---
Author Author SALVADORARLINEJAMAR Organization [facility] Address [address] [place] [address] Care Team Providers Care Sexual Health Physician Name Role Phone AWQAS FRANCO Unavailable PROBLEMS Type Condition ICD9-CM Code HCM65-BH Code Onset Dates Condition Status SNOMED Code Problem Anxiety F41.9 Active 97015329 Problem Mood disorder F39 Active 66957635 Problem Moderate episode of recurrent major depressive disorder F33.1 Active 074880649 ALLERGIES No Information ENCOUNTERS Encounter Location Date Diagnosis [facility] [address] [address] [facility] [id number] [place] [id number] Sep, [facility] [address] [facility] C [id number] [place] [id number] July, Mood disorder F39 ; Moderate episode of recurrent major depressive disorder F33.1 ; Anxiety F41.9 and BMI 40.0-44.9, adult Z68.41 [facility] [address] [facility] [id number] [place] [address] May, Mood disorder F39 ; Moderate episode of recurrent major depressive disorder F33.1 ; Anxiety F41.9 and BMI 40.0-44.9, adult Z68.41 [facility] [address] [facility] C [id number] [place] [id number] May, Mood disorder F39 [facility] [address] [id number] [address] May, Mood disorder F39 ; Moderate episode of recurrent major depressive disorder F33.[address] [facility] [address] [facility] [id number] [address] May, [facility] [address] [facility] [id number] [place] [address] Apr, Mood disorder F39 [facility] [place] [address] [facility] [address] [id number] [place] [id number] Apr, [facility] [place] [address] [facility] C [id number] [place] [id number] Apr, Mood disorder F39 ; Moderate episode of recurrent major depressive disorder F33.1 and Anxiety F41.9 IMMUNIZATIONS No Known Immunizations SOCIAL HISTORY Never Assessed REASON FOR VISIT Requesting return call PLAN OF CARE VITAL SIGNS MEDICATIONS Unknown [...]
--- OUTSIDE RECORDS SUMMARY | 2018-09-12 10:22 | XMS REPORT | Continuity of Care Document ---
Author Organization Unknown Address Unknown Allergies There is no data. Medications There is no data. Problems There is no data. Procedures There is no data. Results Test Result Range TSH - 01/24/18 09:58 TSH 4.20 mIU/L NRG A1C - 01/24/18 09:58 HEMOGLOBIN A1c 6.2 % of total Hgb <5.7 CBC w/MANUAL DIFF - 05/23/18 12:11 WHITE BLOOD CELL COUNT 7.7 Thousand/uL 3.8-10.8 RED BLOOD CELL COUNT 4.40 Million/uL 3.80-5.10 HEMOGLOBIN 12.8 g/dL 11.7-15.5 HEMATOCRIT 37.5 % 35.0-45.0 MCV 85.2 fL 80.0-100.0 MCH 29.1 pg 27.0-33.0 MCHC 34.1 g/dL 32.0-36.0 RDW 13.0 % 11.0-15.0 PLATELET COUNT 374 Thousand/uL 140-400 MPV 9.3 fL 7.5-12.5 ABSOLUTE NEUTROPHILS 4150 cells/uL 2691-1028 ABSOLUTE MONOCYTES 300 cells/uL 200-950 ABSOLUTE EOSINOPHILS 601 cells/uL 15-500 ABSOLUTE BASOPHILS 77 cells/uL 0-200 NEUTROPHILS 53.9 % NRG LYMPHOCYTES 32.4 % NRG MONOCYTES 3.9 % NRG EOSINOPHILS 7.8 % NRG BASOPHILS 1.0 % NRG ABSOLUTE BAND NEUTROPHILS 77 cells/uL 0-750 ABSOLUTE LYMPHOCYTES 2495 cells/uL 850-3900 BAND NEUTROPHILS 1.0 % NRG PLATELET ESTIMATION ADEQUATE ADEQUATE COMMENT(S) NRG A1C - 05/23/18 12:11 HEMOGLOBIN A1c 6.0 % of total Hgb <5.7 CMP - 06/25/18 15:08 GLUCOSE TNP mg/dL NRG MAGNESIUM SERUM - 06/25/18 15:08 MAGNESIUM TNP mg/dL NRG PHOSPHORUS - 06/25/18 15:08 PHOSPHATE ( PHOSPHORUS) TNP mg/dL NRG LIVER PANEL (LFT) - 06/25/18 15:08 PROTEIN, TOTAL TNP g/dL NRG URIC ACID, SERUM - 06/25/18 15:08 URIC ACID TNP mg/dL NRG IRON - 06/25/18 15:08 IRON, TOTAL TNP mcg/dL NRG CBC - 06/25/18 15:08 WHITE BLOOD CELL COUNT 11.0 Thousand/uL 3.8-10.8 RED BLOOD CELL COUNT 4.81 Million/uL 3.80-5.10 HEMOGLOBIN 14.1 g/dL 11.7-15.5 HEMATOCRIT 41.4 % 35.0-45.0 MCV 86.1 fL 80.0-100.0 MCH 29.3 pg 27.0-33.0 MCHC 34.1 g/dL 32.0-36.0 RDW 14.0 % 11.0-15.0 PLATELET COUNT 425 Thousand/uL 140-400 MPV 9.4 fL 7.5-12.5 ABSOLUTE NEUTROPHILS 7414 cells/uL 1978-6029 ABSOLUTE LYMPHOCYTES 2640 cells/uL 850-3900 ABSOLUTE MONOCYTES 550 cells/uL 200-950 ABSOLUTE EOSINOPHILS 330 cells/uL 15-500 ABSOLUTE BASOPHILS 66 cells/uL 0-200 NEUTROPHILS 67.4 % NRG LYMPHOCYTES 24.0 % NRG MONOCYTES 5.0 % NRG EOSINOPHILS 3.0 % NRG BASOPHILS 0.6 % NRG VITAMIN D, 25-H - 06/25/18 15:08 VITAMIN D,25-OH,TOTAL,IA TNP ng/mL NRG A1C - 06/25/18 15:08 HEMOGLOBIN A1c 6.2 % of total Hgb <5.7 MAGNESIUM SERUM - 06/25/18 15:23 MAGNESIUM 2.3 mg/dL 1.5-2.5 PHOSPHORUS - 06/25/18 15:23 PHOSPHATE ( PHOSPHORUS) 2.7 mg/dL 2.5-4.5 LIVER PANEL (LFT) - 06/25/18 15:23 PROTEIN, TOTAL 6.8 g/dL 6.1-8.1 ALBUMIN 4.1 g/dL 3.6-5.1 GLOBULIN 2.7 g/dL (calc) 1.9-3.7 ALBUMIN/GLOBULIN RATIO 1.5 (calc) 1.0-2.5 BILIRUBIN, TOTAL 0.3 mg/dL 0.2-1.2 ALKALINE PHOSPHATASE 107 U/L 33-115 AST 11 U/L 10-35 ALT 14 U/L 6-29 BILIRUBIN, DIRECT 0.1 mg/dL < OR=0.2 BILIRUBIN, INDIRECT 0.2 mg/dL (calc) 0.2-1.2 IRON - 06/25/18 15:23 IRON, TOTAL 67 mcg/dL 40-190 VITAMIN D, 25-H - 06/25/18 15:23 VITAMIN D,25-OH,TOTAL,IA 23 ng/mL 30-100 VITAMIN B12/FOLATE, SERUM PANEL - 06/25/18 15:25 VITAMIN B12 500 pg/mL 200-1100 FOLATE, SERUM 20.6 ng/mL NRG VITAMIN B1 (THIAMINE) - 06/25/18 15:27 VITAMIN B1 (THIAMINE), BLOOD, LC/MS/MS 222 nmol/L 78-185 - PANEL (PROFILE 1) - 08/21/18 10:02 Prescribed Drug 1 Gabapentin NRG Creatinine 20.9 mg/dL > or=20.0 pH 6.98 4.5 - 9.0 Oxidant NEGATIVE mcg/mL <200 Amphetamines NEGATIVE ng/mL <500 medMATCH Amphetamines CONSISTENT NRG Benzodiazepines POSITIVE ng/mL <100 Marijuana Metabolite NEGATIVE ng/mL <20 medMATCH Marijuana Metab CONSISTENT NRG Cocaine Metabolite NEGATIVE ng/mL <150 medMATCH Cocaine Metab CONSISTENT NRG Opiates NEGATIVE ng/mL <100 medMATCH Opiates CONSISTENT NRG Oxycodone NEGATIVE ng/mL <100 medMATCH Oxycodone CONSISTENT NRG COMMENT NRG Alphahydroxyalprazolam NEGATIVE ng/mL <25 medMATCH aOH alprazolam CONSISTENT NRG Alphahydroxymidazolam NEGATIVE ng/mL <50 medMATCH aOH midazolam CONSISTENT NRG Alphahydroxytriazolam NEGATIVE ng/mL <50 medMATCH aOH triazolam CONSISTENT NRG Aminoclonazepam NEGATIVE ng/mL <25 medMATCH Aminoclonazepam CONSISTENT NRG Hydroxyethylflurazepam NEGATIVE ng/mL <50 medMATCH OH,Et flurazepam CONSISTENT NRG Lorazepam 341 ng/mL <50 medMATCH Lorazepam INCONSISTENT NRG Nordiazepam NEGATIVE ng/mL <50 medMATCH Nordiazepam CONSISTENT NRG Oxazepam NEGATIVE ng/mL <50 medMATCH Oxazepam CONSISTENT NRG Temazepam NEGATIVE ng/mL <50 medMATCH Temazepam CONSISTENT NRG Prescribed Drug 2 Tramadol NRG Barbiturates NEGATIVE ng/mL <300 medMATCH Barbiturates CONSISTENT NRG Methadone Metabolite NEGATIVE ng/mL <100 medMATCH Methadone Metab CONSISTENT NRG Phencyclidine NEGATIVE ng/mL <25 medMATCH Phencyclidine CONSISTENT NRG PDM - TRAMADOL - 09/03/18 12:48 Prescribed Drug 1 Gabapentin NRG COMMENT NRG Desmethyltramadol 1522 ng/mL <100 medMATCH Desmethyltram CONSISTENT NRG Tramadol 7422 ng/mL <100 medMATCH Tramadol CONSISTENT NRG Prescribed Drug 2 Tramadol NRG Prescribed Drug 3 Lorazepam NRG Encounters ACCT No. Visit Date/Time Discharge Status Pt. Type Provider Facility Loc./Unit Complaint [id number] 09/03/2018 08:40:00 09/03/2018 23:59:59 [facility] Outpatient [facility] [id number] 09/03/2018 08:40:00 Document Registration [id number] 08/21/2018 09:00:00 Document Registration [id number] 06/25/2018 15:00:00 Document Registration [id number] 06/25/2018 14:43:00 Document Registration [id number] 05/23/2018 11:00:00 Document Registration [id number] 01/24/2018 09:00:00 Document Registration
--- NOTE | 2018-09-12 10:43 | ED Upper Extremity ---
General Chief Complaint: Upper Extremity Stated Complaint: R WRIST INJ Nursing Triage Note: PT REPORTS TO ER VIA AMBULATION TO RM 7. STATES SHE WAS PLAYING WITH HER DOGS YESTERDAY EVENING AND EXTENDED HER RIGHT WRIST BACK. STATES SHE TOOK 6 MOTRIN THIS MORNING AND HAS APPLIED SEVERAL ICE PACKS AND PAIN IS UNRELIEVED. Nursing Sepsis Screen: No Definite Risk Source: patient Exam Limitations: no limitations History of Present Illness Date Seen by Provider: Sep 12, 2018 Time Seen by Provider: 10:15 Initial Comments Here with complaint of right wrist pain that occurred last night. She apparently was trying to stop her dog from chasing a chicken when she fell in a hole and landed on her right wrist. She is taking 6 ibuprofen and has used ice packs throughout the night to help with the pain but is not getting any significant relief. She states it was quite swollen last night which has gone down with ice packs. Denies other injuries or concerns. She has no abrasions or lacerations. Onset: yesterday (with the evening) Severity: moderate Pain/Injury Location: right wrist Method of Injury: fell Modifying Factors: Improves With Immobilization; Worse With Movement Allergies and Home Medications Patient Home Medication List Home Medication List Reviewed: Yes Review of Systems Constitutional: see HPI; No chills, No fever Respiratory: no symptoms reported Cardiovascular: no symptoms reported Musculoskeletal: see HPI, joint pain, joint swelling, muscle pain Skin: no symptoms reported Past Frmallx-Ibpgee-Fbpqni Hx Past Med/Social Hx: Reviewed Nursing Past Med/Soc Hx Patient Social History Alcohol Use: Occasionally Uses Recreational Drug Use: No Recent Foreign Travel: No Contact w/Someone Who Travel: No Recent Infectious Disease Expo: No Recent Hopitalizations: No Seasonal Allergies Seasonal Allergies: No Past Medical History Surgeries: Yes Abdominal, Section, Gallbladder, Hysterectomy Respiratory: No Currently Using CPAP: No Currently Using BIPAP: No Cardiac: No Neurological: Yes Neuropathy : 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 oz. 109.862443yd; BMI Method:Stated General Appearance: WD/WN, mild distress Cardiovascular: regular rate, rhythm, no murmur Respiratory: lungs clear, normal breath sounds Wrist: Yes bone tenderness; No deformity; Yes limited ROM, Yes soft tissue tenderness (prior wrist especially over the ulnar aspect and to a lesser extent on the radial aspect both on the dorsum.) Hand: no evidence of injury, normal ROM Neurologic/Tendon: normal sensation, normal motor functions, normal tendon functions Neurologic/Psychiatric: alert, normal mood/affect, oriented x 3 Skin: normal color, warm/dry Progress/Results/Core Measures Results/Orders My Orders Orders - TERESA CONKLIN MD Wrist, Right, 3 Views Or More (09/12/18 10:21) Vital Signs/I&O 09/12/18 10:04 Temp 96.7 Pulse 95 Resp 18 B/P (MAP) 137/97 (110) Pulse Ox 98 O2 Delivery Room Air Blood Pressure Mean: 110 Progress Progress Note : Progress Note Seen and evaluated. X-ray right wrist. Patient did drive to the emergency department so we will hold pain medicine currently. She has taken multiple ibuprofen this morning so we will hold Toradol. Monitor patient. 03/19/07: No acute findings on x-ray. Offer tramadol but she states that usually doesn't work. She will continue with ibuprofen and Tylenol although limiting ibuprofen due to her gastric bypass. Respiratory applied. Discharged home with return precautions. Patient verbalize understanding instructions and agreement with plan. Diagnostic Imaging Diagonstic Imaging: Xray Plain Films/CT/US/NM/MRI: other Comments [facility]. [place], [place] NAME: [facility] REC#: [id number] PT STATUS: REG ER : 1970 PHYSICIAN: TERESA CONKLIN MD ADMIT DATE: 09/12/18/ER Draft Date of Exam:09/12/18 WRIST, RIGHT, 3 VIEWS OR MORE INDICATION: Wrist pain Laterally distal radius and ulna intact. The proximal distal carpal rows and carpometacarpal joints intact. No fracture or dislocation identified. IMPRESSION: No acute appearing abnormality. Dictated on workstation # [id number] Dict: 09/12/18 1039 Trans: 09/12/18 1043 [facility] [id number] Interpreted by: CHRISTIAN KIM Electronically signed by: Departure Impression Primary Impression: Right wrist sprain Qualified Codes: S63.501A - Unspecified sprain of right wrist, initial encounter Disposition: HOME, SELF-CARE Condition: Stable Departure-Patient Inst. Decision time for Depature: 11:09 Referrals: NO,LOCAL PHYSICIAN (PCP) Primary Care Physician DMITRI CANDELARIA DO Patient Instructions: Wrist Sprain (DC) Add. Discharge Instructions: All discharge instructions reviewed with patient and/or family. Voiced understanding. Use wrist splint as needed over the next several days and then as needed there after. Follow-up with your doctor early next week or the orthopedist listed or if you're choosing for recheck and further evaluation if not improved. Return for worse pain, swelling, weakness, numbness or other concerns as needed. You may take Tylenol/acetaminophen 1000 mg every 6 hours as needed for pain. You may take ibuprofen 400-600 mg (2-3 tablets) every 8 hours as needed for pain as well but try to minimize this due to her gastric bypass. Use ice packs to the area concern 20 minutes per hour as needed to reduce swelling and pain. TERESA CONKLIN MD Sep 12, 2018 10:43
--- NOTE | 2018-09-12 10:44 | Diagnostic Imaging Report ---
INDICATION: Wrist pain Laterally distal radius and ulna intact. The proximal distal carpal rows and carpometacarpal joints intact. No fracture or dislocation identified. IMPRESSION: No acute appearing abnormality. Dictated by: Dictated on workstation # [id number]
--- NOTE | 2018-09-12 11:05 | NUR ---
DR CONKLIN IN TO SEE PT
[2018-09-12 11:18] VITALS: BP 138/97
== END 2018-09-12 11:23 | disposition home or self-care (01) ==
LOC: ER 09:58
DX: S63.501A Unspecified sprain of right wrist, initial encounter (principal); G62.9 Polyneuropathy, unspecified; M79.7 Fibromyalgia; Z90.710 Acquired absence of both cervix and uterus; W17.2XXA Fall into hole, initial encounter
CPT/HCPCS: 73110

== ENCOUNTER 2018-11-19 18:12 | Emergency (ER) | payer MEDICARE, BC ==
[~2018-11-19] VITALS: Ht 165.1 cm; Wt 108.4 kg
[2018-11-19] MEDS ORDERED: CEPH500T PO (20:16)
--- NOTE | 2018-11-19 20:16 | ED Upper Extremity ---
General Chief Complaint: Upper Extremity Stated Complaint: LT ARM SWELLING, PAIN, HOT Nursing Triage Note: Patient states that she had a gastric bypass on 11/14/18. Patient had an IV in her left wrist. Patient states that her hand began to swell when she came home. She began having swelling in her left forearm. Patient called her surgeon and was advised to go to the closest ER. Patient does have mild swelling in her left hand and forearm. Very mild redness is noted. Nursing Sepsis Screen: No Definite Risk Source: patient History of Present Illness Date Seen by Provider: Nov 19, 2018 Time Seen by Provider: 18:36 Initial Comments 48-year-old female presenting with complaints of redness, pain, swelling and heat to her wrist and forearm. She had an IV at that site when she had surgery on November 14 in [place] for evaluation of revision for her gastric bypass. She states that it had been this way since she was discharged home. She hasn't tried putting some ice on it after getting home and she has also been on Lovenox 40 mg subcutaneous since going home. She had contact had the surgeon's office today and they had advised her to be evaluated for possible blood clot. She denies any numbness or tingling in her hand. She does have some mild swelling into her left hand. She denies any fever or chills. Allergies and Home Medications Allergies Coded Allergies: No Known Drug Allergies (Unverified , 11/19/18) Home Medications Cephalexin 500 Mg Tablet, 500 MG PO QID Prescribed by: GRAEME SANCHEZ on 11/19/18 2016 Patient Home Medication List Home Medication List Reviewed: Yes Review of Systems Constitutional: No chills, No fever EENTM: no symptoms reported Respiratory: no symptoms reported Cardiovascular: no symptoms reported Gastrointestinal: No nausea, No vomiting Genitourinary: no symptoms reported Musculoskeletal: see HPI Skin: see HPI Past Aqubmph-Eezepg-Clpami Hx Past Med/Social Hx: Reviewed Nursing Past Med/Soc Hx Patient Social History Alcohol Use: Denies Use Recreational Drug Use: No Smoking Status: Former Smoker Recent Foreign Travel: No Contact w/Someone Who Travel: No Recent Infectious Disease Expo: No Recent Hopitalizations: No Physical Abuse: No Sexual Abuse: No Mistreated: No Fear: No Seasonal Allergies Seasonal Allergies: No Past Medical History Surgeries: Yes Abdominal, Section, Gallbladder, Hysterectomy Respiratory: No Currently Using CPAP: No Currently Using BIPAP: No Cardiac: No Neurological: Yes 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 0oz. 108.354261gh; BMI Method:Stated General Appearance: WD/WN, no apparent distress HEENT: PERRL/EOMI, normal ENT inspection, pharynx normal Neck: non-tender, full range of motion, supple, normal inspection Cardiovascular: normal peripheral pulses Wrist: Yes soft tissue tenderness (left wrist and forearm with tenderness to palpation and mild swelling as well as some increased warmth and erythema.), Yes swelling Hand: Left, soft tissue tenderness, swelling Neurologic/Tendon: normal sensation, normal motor functions Neurologic/Psychiatric: alert, normal mood/affect, oriented x 3 Skin: warm/dry, other (mild increased erythema to her left wrist and forearm. She has mild swelling and tenderness to the left wrist and forearm.) Progress/Results/Core Measures Results/Orders My Orders Orders - GRAEME SANCHEZ MD Cephalexin Capsule (Keflex Capsule) (11/19/18 20:17) Vital Signs/I&O 11/19/18 11/19/18 19:03 20:39 Temp 97.7 97.7 Pulse 87 87 Resp 18 B/P (MAP) 164/106 (125) 164/106 (125) Pulse Ox 95 95 O2 Delivery Room Air Blood Pressure Mean: 125 Progress Progress Note #1: Progress Note On physical exam this appears to be some superficial thrombophlebitis secondary to her IV site. She has no proximal arm swelling or tenderness consistent with any DVT. Will check in with her primary surgeon Dr. Diego Dos Santos out of [place]. Progress Note #2: Progress Note After discussion with Dr. Dos Santos I described the area in question to him explained to him that it appeared more to be a superficial thrombophlebitis to me. He reiterated that since he could not liaison eyes on it if I felt comfortable with that opinion any superficial event that she concerned that try treating with warm packs and the Course of Keflex. She will be seen in the clinic on to be reevaluated and an ultrasound could be performed if needed. I told them that it certainly appeared to be more of a phlebitis to me and I didn't feel comfortable proceeding with treating it that way. Did not have features that seemed to be consistent with a DVT. Also she has been on the Lovenox for DVT prophylaxis. I counseled the patient on care and treatment for phlebitis. He was also noted that she had elevated blood pressures while in the emergency department but was not having any chest pain, headaches, blurry vision, numbness or tingling in her arms or legs. She had been having some pain due to the left wrist and forearm as well as abdominal pain from the recent surgery. I advised her to monitor the blood pressure and have her check back with her regular doctor about this. If it persisted or she started having those other symptoms that I just listed in she was advised to seek medical care and further evaluation. At this point we would not treat her blood pressure as it was an isolated issue. However she may need to have further monitored and rechecked. Departure Impression Primary Impression: Superficial thrombophlebitis of left upper extremity Disposition: HOME, SELF-CARE Condition: Stable Departure-Patient Inst. Decision time for Depature: 20:12 Referrals: NO,LOCAL PHYSICIAN (PCP) Primary Care Physician Patient Instructions: Superficial Phlebitis Add. Discharge Instructions: Apply hot back to the area for 15-20 minutes every few hours to help the area heal. Take antibiotic to help with superficial infection from IV site. Check with Dr. Dos Santos on as scheduled. Follow up or be seen sooner if having worsening problems All discharge instructions reviewed with patient and/or family. Voiced understanding. Scripts Cephalexin (Cephalexin) 500 Mg Tablet 500 MG PO QID for superficial phlebitis for 7 Days, #28 TAB 0 Refills Prov: GRAEME SANCHEZ MD 11/19/18 GRAEME SANCHEZ MD Nov 19, 2018 20:16
[2018-11-19] MEDS ORDERED: CEPHALEXIN 250 MG (KEFLEX) CAP PO STA (20:17)
[2018-11-19 20:39] VITALS: BP 164/106
== END 2018-11-19 20:39 | disposition home or self-care (01) ==
LOC: EDUNIT# 18:12 → ER FS 18:14
DX: I80.8 Phlebitis and thrombophlebitis of other sites (principal); G62.9 Polyneuropathy, unspecified; M79.7 Fibromyalgia; Z98.84 Bariatric surgery status; Z87.891 Personal history of nicotine dependence; Z90.710 Acquired absence of both cervix and uterus
CPT/HCPCS: 99283

== ENCOUNTER → 2021-05-11 | Outpatient (CLI) | payer MEDICARE, MEDICAID ==
[~2021-05-11] MED LIST: CEPH500T PO
== END ==
LOC: LAB 09:39
PROVIDERS: ATTEND Family Medicine
DX: T81.31XA Disruption of external operation (surgical) wound, not elsewhere classified, initial encounter (principal); L02.212 Cutaneous abscess of back [any part, except buttock and flank]; M62.81 Muscle weakness (generalized); E66.01 Morbid (severe) obesity due to excess calories
CPT/HCPCS: 36415; 85652; 86141

== ENCOUNTER → 2021-05-11 | Outpatient (CLI) | payer MEDICARE, MEDICAID | LOC: WOUNDCARE 08:11 | PROVIDERS: ATTEND Family Medicine | DX: I96 Gangrene, not elsewhere classified (principal); T81.31XA Disruption of external operation (surgical) wound, not elsewhere classified, initial encounter; L02.212 Cutaneous abscess of back [any part, except buttock and flank]; M62.81 Muscle weakness (generalized); E66.01 Morbid (severe) obesity due to excess calories; Z68.36 Body mass index [BMI] 36.0-36.9, adult; B95.62 Methicillin resistant Staphylococcus aureus infection as the cause of diseases classified elsewhere | CPT/HCPCS: 10180; 87070; 87205; A6266; G0463 ==

== ENCOUNTER → 2021-05-20 | Outpatient (CLI) | payer MEDICARE, MEDICAID | LOC: WOUNDCARE 09:31 | PROVIDERS: ATTEND Family Medicine | DX: T81.31XA Disruption of external operation (surgical) wound, not elsewhere classified, initial encounter (principal); L02.212 Cutaneous abscess of back [any part, except buttock and flank]; M62.81 Muscle weakness (generalized); E66.01 Morbid (severe) obesity due to excess calories; B95.61 Methicillin susceptible Staphylococcus aureus infection as the cause of diseases classified elsewhere | CPT/HCPCS: 11042; G0463 ==

== ENCOUNTER → 2021-05-20 | Outpatient (CLI) | payer OTHER, MEDICAID ==
[~2021-05-20] MED LIST changes: +GADOTERATE 0.5 MMOL/ML (CLARISCAN) 20 ML VIAL IV ONE
--- NOTE | 2021-05-20 09:52 | Diagnostic Imaging Report ---
CLINICAL INDICATION: Patient had open ulcer on her mid thoracic spine area. Patient has history of 2 previous thoracic spine surgeries. EXAM: MRI of the thoracic spine performed without and with 18 cc of Clariscan IV contrast. Sequences include sagittal T1, sagittal T1 fat-sat, sagittal T2, sagittal T2 fat-sat, axial T2, axial T1, axial T1 post IV contrast, and sagittal T1 fat-sat post IV contrast. Comparison: None. Findings: There are postop changes involving the lower thoracic spine or partial resection of the T8 and T9 spinous processes. There is a soft tissue wound in the T8-T9 region with small amount of fluid and/or packing in the superficial portion. There is no measurable abscess seen. There is mild dural enhancement posteriorly seen from the T6-T9 levels, likely related to the postop area with no measurable mass. Thoracic spinal cord has normal cord caliber with no abnormal signal. There are small degenerative spurs involving the thoracic spine. There is no significant disk bulge. Intervertebral disk heights are maintained. There is no significant central canal or neural foramen narrowing. Besides postoperative changes, there is no other significant paraspinal abnormality. There is a 1.7 cm cyst involving the left kidney. IMPRESSION: 1: There are postop changes at the T8-T9 level with partial resection of the spinous processes. There is a wound with suspected dressing in the region. There is no abscess seen. There is mild dural enhancement seen from the T6-T9 levels, likely from postoperative changes with no measurable mass. Comparison to prior MRI, if available, thoracic imaging would help better evaluate for interval change. 2: There are small anterior degenerative spurs involving the thoracic spine. There is no significant disk bulge. There is no significant central spinal canal or neural foramen narrowing. 3: Thoracic spinal cord is unremarkable. Dictated by: Dictated on workstation # [id number]
== END ==
LOC: RAD 08:45
PROVIDERS: ATTEND Family Medicine
DX: T81.31XA Disruption of external operation (surgical) wound, not elsewhere classified, initial encounter (principal); L98.499 Non-pressure chronic ulcer of skin of other sites with unspecified severity
CPT/HCPCS: 72157

== ENCOUNTER → 2021-05-26 | Outpatient (CLI) | payer MEDICARE, MEDICAID ==
[~2021-05-26] MED LIST changes: -GADOTERATE 0.5 MMOL/ML (CLARISCAN) 20 ML VIAL IV ONE
== END ==
LOC: WOUNDCARE 08:26
PROVIDERS: ATTEND Family Medicine
DX: T81.31XA Disruption of external operation (surgical) wound, not elsewhere classified, initial encounter (principal); L02.212 Cutaneous abscess of back [any part, except buttock and flank]; E66.01 Morbid (severe) obesity due to excess calories; B95.62 Methicillin resistant Staphylococcus aureus infection as the cause of diseases classified elsewhere; I96 Gangrene, not elsewhere classified; Z68.36 Body mass index [BMI] 36.0-36.9, adult
CPT/HCPCS: 11042; G0463

== ENCOUNTER → 2021-06-02 | Outpatient (CLI) | payer MEDICARE, MEDICAID | LOC: WOUNDCARE 08:26 | PROVIDERS: ATTEND Family Medicine | DX: T81.31XA Disruption of external operation (surgical) wound, not elsewhere classified, initial encounter (principal); L02.212 Cutaneous abscess of back [any part, except buttock and flank]; M62.81 Muscle weakness (generalized); E66.01 Morbid (severe) obesity due to excess calories; B95.62 Methicillin resistant Staphylococcus aureus infection as the cause of diseases classified elsewhere; I96 Gangrene, not elsewhere classified; Z68.36 Body mass index [BMI] 36.0-36.9, adult | CPT/HCPCS: 11042; G0463 ==

== ENCOUNTER → 2021-06-09 | Outpatient (CLI) | payer MEDICARE, MEDICAID | LOC: WOUNDCARE 08:17 | PROVIDERS: ATTEND Family Medicine | DX: T81.31XA Disruption of external operation (surgical) wound, not elsewhere classified, initial encounter (principal); L02.212 Cutaneous abscess of back [any part, except buttock and flank]; M62.81 Muscle weakness (generalized); E66.01 Morbid (severe) obesity due to excess calories; B95.62 Methicillin resistant Staphylococcus aureus infection as the cause of diseases classified elsewhere; I96 Gangrene, not elsewhere classified | CPT/HCPCS: 15271; G0463 ==

== ENCOUNTER → 2021-06-16 | Outpatient (CLI) | payer MEDICARE, MEDICAID | LOC: WOUNDCARE 08:34 | PROVIDERS: ATTEND Family Medicine | DX: T81.31XA Disruption of external operation (surgical) wound, not elsewhere classified, initial encounter (principal); M62.81 Muscle weakness (generalized); E66.01 Morbid (severe) obesity due to excess calories | CPT/HCPCS: 15271; G0463 ==

== ENCOUNTER → 2021-06-22 | Outpatient (CLI) | payer MEDICARE, MEDICAID | LOC: WOUNDCARE 09:42 | PROVIDERS: ATTEND Family Medicine | DX: T81.31XA Disruption of external operation (surgical) wound, not elsewhere classified, initial encounter (principal); M62.81 Muscle weakness (generalized); I96 Gangrene, not elsewhere classified; E66.01 Morbid (severe) obesity due to excess calories; Z68.36 Body mass index [BMI] 36.0-36.9, adult | CPT/HCPCS: 15271; G0463; 15786 ==

== ENCOUNTER → 2021-06-30 | Outpatient (CLI) | payer MEDICARE, MEDICAID | LOC: WOUNDCARE 12:49 | PROVIDERS: ATTEND Family Medicine | DX: T81.31XA Disruption of external operation (surgical) wound, not elsewhere classified, initial encounter (principal); M62.81 Muscle weakness (generalized); E66.01 Morbid (severe) obesity due to excess calories; I96 Gangrene, not elsewhere classified | CPT/HCPCS: 11042; A6021; G0463 ==

== ENCOUNTER → 2021-07-08 | Outpatient (CLI) | payer MEDICARE, MEDICAID | LOC: WOUNDCARE 11:03 | PROVIDERS: ATTEND Family Medicine | DX: T81.31XA Disruption of external operation (surgical) wound, not elsewhere classified, initial encounter (principal); M62.81 Muscle weakness (generalized); E66.01 Morbid (severe) obesity due to excess calories; I96 Gangrene, not elsewhere classified | CPT/HCPCS: 99212 ==